=== PATIENT | male | born 1980 | race Two or more races ===

== ENCOUNTER 2022-01-25 08:03 | Emergency (ER) | payer SELFPAY ==
[~2022-01-25] VITALS: Ht 188 cm; Wt 83.9 kg
--- NOTE | 2022-01-25 08:12 | NUR ---
gera from [facility],bystander called paramedics,shivering,no medical complaint BG [id number]. TO ER BED 13 , HOOKED TO [facility]. CHANGED TO HOSP GOWN, WARM BLANKET PROVIDED. AWAITING MD BROWN.
--- NOTE | 2022-01-25 08:22 | NUR ---
DR GRIDER AT BEDSIDE
[2022-01-25 08:45] LABS: BASOPHILS % (AUTO) 0.3 % (0.0-2.0); EOSINOPHILS % (AUTO) 0.1 % (0.0-6.0); HEMATOCRIT 37 % (39-51); HEMOGLOBIN 12.3 g/dL (13.5-17.5); LYMPHOCYTES # (AUTO) 1.3 K/uL (0.8-4.8); MEAN CORPUSCULAR HGB CONC 34 g/dl (31.0-36.0); MEAN CORPUSCULAR VOLUME 79 fL (80-96); MONOCYTES # (AUTO) 0.6 K/uL (0.1-1.30); MONOCYTES % (AUTO) 9.7 % (2.0-12.0); NEUTROPHILS # (AUTO) 4.7 K/uL (1.8-8.9); NEUTROPHILS % (AUTO) 70.9 % (43.0-81.0); PLATELET COUNT (AUTO) 271 K/uL (150-450); RED BLOOD CELL COUNT(AUTO) 4.65 MIL/uL (4.5-6.0); WHITE BLOOD COUNT (AUTO) 6.7 K/uL (4.3-11.0)
[2022-01-25 09:01] LABS: ALANINE AMINOTRANSFERASE 70 U/L (12-78); ALCOHOL, BLOOD < 3 mg/dL (0-0); ALKALINE PHOSPHATASE 102 U/L (46-116); ASPARTATE AMINOTRANSFERASE 26 U/L (15-37); BILIRUBIN,DIRECT 0.2 mg/dL (0.0-0.2); BILIRUBIN,TOTAL 0.5 mg/dL (0.2-1.0); CALCIUM, SERUM 9.6 mg/dL (8.5-10.1); CARBON DIOXIDE 29 mmol/L (21-32); CHLORIDE 100 mmol/L (98-107); GLUCOSE 275 mg/dL (74-106); POTASSIUM 3.3 mmol/L (3.5-5.1); SODIUM SERUM 135 mmol/L (136-145); TOTAL PROTEIN, SERUM 8.2 g/dL (6.4-8.2); UREA NITROGEN, BLOOD 14 mg/dL (7-18)
[2022-01-25 09:03] LABS: ACETAMINOPHEN < 1 ug/ml (10-30)
[2022-01-25] MEDS ORDERED: METF-440 PO (09:30)
--- NOTE | 2022-01-25 09:36 | NUR ---
Patient given written and verbal discharge instructions. Patient verbalizes understanding of instructions. Patient is ambulatory with steady gait. Refuses offer of [facility] placement. Patient given list of available shelters in surrounding area. Nameband removed. In proper clothing upon discharge. All belongings given to the patient
[2022-01-25 09:43] VITALS: BP 149/90
--- NOTE | 2022-01-25 09:43 | NUR ---
Patient discharged to home in stable condition. Written and verbal after care instructions given. Patient verbalizes understanding of instruction.
== END 2022-01-25 09:43 | disposition home or self-care (01) ==
LOC: ER 08:39
DX: R73.9 Hyperglycemia, unspecified (principal); Z59.00 Homelessness unspecified
CPT/HCPCS: 36415; 80048-TC; 80076-TC; 85025-TC; G0480